=== PATIENT | male | born 1960 | race Caucasian/White ===

== ENCOUNTER 2024-11-27 21:04 | Inpatient (IN) | payer MEDICARE, MEDICAID, SELFPAY ==
[2024-11-27] VITALS (7 sets, daily range): BP systolic 88–115; BP diastolic 62–73; BMI 35.0
--- NOTE | 2024-11-27 18:04 | ED.GENMED ---
History of Present Illness
General
Chief Complaint: Cold/Flu/URI Symptoms
Source: patient
Exam Limitations: none
Time Seen by Provider: 11/27/24 17:54
History of Present Illness
History of Present Illness:
64-year-old male with history of developmental delay from halfway presents with cough. There are other members in the halfway with a cough. Patient limited historian but he denies pain.
Past History
Past History
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
ED Past Surgical History: Brain (Subdural hematoma with evacuation, 1960s)
Social History
Tobacco: Non-smoker
Alcohol: None
Drug: None
Personal: Single
Living: assisted living
Employment: Disabled
Family History
Family History: Hypertension
Phy Exam
Physical Exam
Physical Exam:
General: Well-appearing male no acute respiratory distress
HEENT: Normocephalic atraumatic
Heart: Tachycardic but regular
Lungs: Subtle Rales at the bases
Abdomen is soft nontender nondistended
Extremities: No cyanosis or edema
Skin is warm no rash
Course
Orders/Labs/Results
Orders:
Orders
11/27/24 18:01
CMP [Comprehensive Metabolic Panel] Urgent
COVID-19 Antigen Urgent
Source: Nasal Swab
Complete Blood Count/With Diff Urgent
Influenza A+B Rapid Molecular Urgent
BAILEY Source: Nasal Swab
Specimen Description:
11/27/24 18:02
CR Chest - 2 Views Urgent
Comment:
Reason For Exam: cough,
11/27/24 18:07
Lactic Acid Q4H
Comment: CANCEL 2nd LACTIC ACID IF 1st LACTIC ACID IS LESS THAN 2
Blood Culture Q30M
BAILEY Source: Blood/Venous
Specimen Description:
Blood Culture Q30M
BAILEY Source: Blood/Venous
Specimen Description:
11/27/24 18:09
0.9% Sodium Chloride 1000 ml [Nss] 1,000 ml IV BOLUS
Abnormal Lab Results
11/27/24
18:01
RBC 4.49 L 10^6/uL
(4.70-6.10)
MCHC 32.7 L g/dL
(33.0-37.0)
Absolute Lymphs (auto) 0.7 L 10^3/uL
(1.2-3.4)
Absolute Monos (auto) 0.8 H 10^3/uL
(0.1-0.6)
Lymphocytes % 11.4 L %
(20.5-51.1)
Monocytes % 13.3 H %
(1.7-9.3)
Sodium 134 L mmol/L
(135-145)
Chloride 97 L mmol/L
(98-107)
Glucose 108 H mg/dl
(70-99)
11/27/24 18:01
11/27/24 18:01
Vital Signs
Initial and Last Documented VS:
Initial Vital Signs
Temp Pulse Resp BP Pulse Ox
98.2 F 101 18 88/62 88
11/27/24 17:52 11/27/24 17:52 11/27/24 17:52 11/27/24 17:52 11/27/24 17:52
Last Documented Vital Signs
Temp Pulse Resp BP Pulse Ox
98.2 F 104 19 93/68 88
11/27/24 17:52 11/27/24 18:45 11/27/24 18:45 11/27/24 18:04 11/27/24 18:04
MDM/Problems Addressed
Differential Diagnosis Includes:
Cough. Upon triage vital signs show tachycardia hypotension and hypoxia. He is on 2 L of oxygen. Consider COVID flu versus pneumonia or bronchitis. Does not appear volume overloaded.
Fluids ordered lactic blood cultures pending. Chest x-ray pending. COVID and flu test pending
*Critical Care Note
Total Time (30-74mins, 75-104mins- exclusive of procedures): Not Applicable
Update Note
Update Note:
Chest x-ray clear tested positive for influenza COVID-negative. Patient still requiring nasal oxygen blood pressure improved slightly after IV fluids. Will admit to hospital for influenza.
ED Attending Note
-
Portions of this chart may have been created with voice recognition software.� Occasional wrong word or��sound alike� substitutions may have occurred due to the inherent limitations of voice recognition software.
Discharge Plan
Departure
Patient Disposition: Admit
Date of Disposition: 11/27/24
Time of Disposition: 19:40
Presentation/result/management discussed w/ accepting MD/DO: Hospitalist
Discharge Problem:
Influenza A
Prescriptions:
No Action
verapamil 180 MG tablet extended release
180 mg PO HS
docusate sodium 100 MG capsule
100 mg PO HSPRN PRN (Reason: CONSTIPATION)
acetaminophen 325 MG tablet
650 mg PO Q6HPRN PRN (Reason: PAIN/HEADACHE)
loperamide 2 MG capsule
2 mg PO Q4HPRN PRN (Reason: LOOSE STOOL)
olanzapine 5 MG tablet
5 mg PO HS
phenytoin sodium extended 100 MG capsule
400 mg PO DAILY
guaifenesin 100 MG/5 ML liquid
100 mg PO QIDPRN PRN (Reason: COUGH)
famotidine 20 MG tablet
20 mg PO BID
lisinopril 10 MG tablet
10 mg PO DAILY
loratadine-pseudoephedrine [Allergy Relief-D (loratadine)] 1 EACH tablet extended release 12 hr
1 tab PO DAILYPRN PRN (Reason: SINUS CONGESTION)
paroxetine HCl [Paxil] 40 MG tablet
40 mg PO DAILY
psyllium husk [Natural Fiber Laxative] 0.52 GM capsule
1 cap PO DAILY
chlorhexidine gluconate 15 ML mouthwash
5 ml PO BID
Patient Comments:
Rinse 5 mL for 1 minute then spit
Zinc Oxide 40% [Desitin Ointment:] 1 APPLIC Tube
1 applic topical BIDPRN PRN (Reason: BUTTOCK DERMATITIS)
Interventions
Interventions:
*Risk Screen - Suicide Last Done: 11/27/24 17:52
*General Assessment Last Done: 11/27/24 17:52
*Neglect/Abuse Screening Last Done: 11/27/24 17:52
ED- Fall Risk Assessment Last Done: 11/27/24 18:57
*ED COVID-19 Vaccine History Last Done: 11/27/24 17:52
ED- Pulmonary Assessment Last Done: 11/27/24 17:52
Discharge Date and Time
Print Language: AZERI
[2024-11-27 18:11] LABS: % Basophils 0.3 % (0-2); % Immature Granulocytes 0.5 % (0-0.5); % Lymphocytes 11.4 % (20.5-51.1); % Monocytes 13.3 % (1.7-9.3); % Neutrophils 74.5 % (42.2-75.2); Absolute Lymphocytes 0.7 10^3/uL (1.2-3.4); Absolute Monocytes 0.8 10^3/uL (0.1-0.6); Absolute Neutrophils 4.6 10^3/uL (1.4-6.5); Hematocrit 40.7 % (39.0-52.0); Hemoglobin 13.3 g/dL (13.0-18.0); Mean Corp Hgb Conc. 32.7 g/dL (33.0-37.0); Mean Corpuscular Hgb 29.6 pg (27.0-31.0); Mean Corpuscular Volume 90.6 fL (80.0-94.0); Mean Platelet Volume 10.2 fL (7.4-10.4); Nucleated Red Blood Cells % 0 % (-); Platelet Count 153 10^3/uL (130-400); Red Blood Cell Count 4.49 10^6/uL (4.70-6.10); Red Cell Dist. Width 13.2 % (11.5-14.5); White Blood Cell Count 6.2 10^3/uL (4.8-10.8)
[2024-11-27] MEDS: NSS 1000 IV (18:14)
[2024-11-27 18:27] LABS: Lactic Acid 0.8 mmol/L (0.7-2.0)
[2024-11-27 18:28] LABS: ALT (SGPT) 19 U/L (0-50); AST (SGOT) 35 U/L (17-59); Albumin 4.3 g/dl (3.5-5.0); Alkaline Phosphatase 64 U/L (38-126); Blood Urea Nitrogen 19 mg/dl (9-20); Calcium 9.7 mg/dl (8.4-10.2); Carbon Dioxide 26 mmol/L (22-30); Chloride 97 mmol/L (98-107); Glucose 108 mg/dl (70-99); Potassium 4.4 mmol/L (3.5-5.1); Sodium 134 mmol/L (135-145); Total Bilirubin 0.3 mg/dl (0.2-1.3); Total Protein 6.8 g/dl (6.3-8.2); eGFR > 60.00
[2024-11-27 18:47] LABS: COVID-19 Antigen Negative (Negative)
--- NOTE | 2024-11-27 19:48 | HPS.HSE ---
Family Physician
-
Family Physician:
Chief Complaint
-
Cough, Shortness of Breath and Fever
History of Present Illness
Patient is a 64 y/o male past medical history of subdural hematoma, essential hypertension, seizure disorder and intellectual disability who presents with cough, shortness of breath and fever. Patient is a limited historian. He is able to tell me
he does not feel well. He admits to cough and feeling a little shortness of breath. In the emergency department he tested positive for Influenza. Patient states that many people at the halfway are sick.
Medical History
Past Medical History
Past Medical History: Reports Other
Additional Past Medical History:
Subdural Hematoma
Essential Hypertension
Seizure Disorder
GERD
Mood Disorder / Anxiety / Depression
Moderate Intellectual Disability
Past Surgical History: Reports Other
Additional Past Surgical History:
Subdural Hematoma Evacuation
Feet Surgery
Cholecystectomy
Social History
Tobacco: Non-smoker
Living: Other (Care Home)
Family History
Family History: Not pertinent
Allergies / Home Medications
Allergies reflects when Allergies were last updated in [employer].
Home Medications with original date entered in [facility]
Allergy/Medication List:
Allergies
Allergy/AdvReac Type Severity Reaction Status Date / Time
grass pollen Allergy Unknown Verified 11/27/24 20:26
ragweed pollen Allergy Unknown Verified 11/27/24 20:26
tree and shrub pollen Allergy Unknown Verified 11/27/24 20:26
Home Medications
verapamil 180 mg tablet,extended release 180 mg PO HS 06/16/12
docusate sodium 100 mg capsule 100 mg PO BID 10/03/14
acetaminophen 325 mg tablet 650 mg PO Q6HPRN PRN mild pain/headache 05/22/15
chlorhexidine gluconate 0.12 % mouthwash 5 ml PO BID 05/22/15
famotidine 20 mg tablet 20 mg PO BID 05/22/15
guaifenesin 100 mg/5 mL oral liquid 100 mg PO QIDPRN PRN COUGH 05/22/15
loperamide 2 mg capsule 2 mg PO Q4HPRN PRN LOOSE STOOL 05/22/15
psyllium husk 0.52 gram capsule (Natural Fiber Laxative) 1 cap PO DAILY 05/22/15
alendronate 70 mg tablet 70 mg PO WE 11/27/24
calcium 500 mg (as carbonate)-vitamin D3 5 mcg (200 unit) tablet (Oyster Shell Calcium-Vitamin D3) 2 tab PO DAILY 11/27/24
lisinopril 5 mg tablet 5 mg PO DAILY 11/27/24
loratadine-pseudoephedrine ER 10 mg-240 mg tablet,extended [id number] (Claritin-D 24 Hour) 1 tab PO DAILYPRN PRN sinus congestion 11/27/24
olanzapine 7.5 mg tablet 7.5 mg PO HS 11/27/24
paroxetine HCl 20 mg tablet 20 mg PO HS 11/27/24
polyethylene glycol 3350 17 gram oral powder packet (Miralax) 17 g PO DAILYPRN PRN constipation 11/27/24
tamsulosin 0.4 mg capsule 0.4 mg PO DAILY 11/27/24
Review of Systems
-
Unable to obtain full review of systems at this time due to: Other (Mental Disability)
Respiratory: Reports Cough and Trouble Breathing
Cardiac: Denies Chest Pain or Palpitations
Physical Exam
Vital Signs
Vital Signs
Temp Pulse Resp BP Pulse Ox
98.2 F 104 19 93/68 88
11/27/24 17:52 11/27/24 18:45 11/27/24 18:45 11/27/24 18:04 11/27/24 18:04
Physical Exam
General: Comfortable, Conversant and Other (Intermittent cough)
HEENT: Anicteric and Moist mucous membranes
Respiratory: Other (Coarse breath sounds throughout)
Cardiac: S1/S2 and Regular Rhythm
GI: Soft and Non Tender
Rectal: Deferred by Provider
Musculoskeletal: No Clubbing, No Cyanosis and No Edema
Skin: Warm and Dry
Neuro: Awake, Alert, Oriented and Nonfocal/grossly intact
Psych: Calm
Laboratory Results
-
11/27/24 18:01
11/27/24 18:01
Laboratory Results
Lactic Acid Cancelled 11/27/24 22:15
Total Bilirubin 0.3 mg/dl (0.2-1.3) 11/27/24 18:01
AST 35 U/L (17-59) 11/27/24 18:01
ALT 19 U/L (0-50) 11/27/24 18:01
Alkaline Phosphatase 64 U/L (38-126) 11/27/24 18:01
Data Reviewed
-
Lab Data: Labs Reviewed by me
Impression/Plan
-
Acute Hypoxic Respiratory Insufficiency and Sepsis secondary to Influenza Type A
-Continue supplemental oxygen
-Continue Tamiflu
-Continue Mucinex
Essential Hypertension
-Hold lisinopril and verapamil due to low blood pressure
Mood Disorder / Anxiety / Depression
-Continue olanzapine and paroxetine
Developmental Delay
-Patient resides in a halfway
DVT proph: Lovenox
Code Status: Full Code
--- NOTE | 2024-11-27 20:55 | W.PN.UPDATE ---
Update Note
Progress Note Update
This is an addendum to the H&P written by Chloe Tavarez on 11/27/2024. Patient seen and examined independently with PA.
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
shortness of breath. Duration of symptoms unclear. He tested positive for flu today.
Patient initially arrived with blood pressure of 88/62.
Chest x-ray negative. Influenza positive.
Clinically septic due to tachycardia, fever. Check blood cultures, IV fluids. Tamiflu started. Hold antihypertensive medications.
[2024-11-27] MEDS: TAMIFLU 30 MG PO (22:06)
[2024-11-28] VITALS (14 sets, daily range): BP systolic 94–124; BP diastolic 63–80; O2SAT 92; BMI 30.9
[2024-11-28] MEDS: NSS 1000 IV ×3 (01:09→21:49)
[2024-11-28] MEDS: ZYPREXA 7.5 MG PO ×2 (01:12→21:50)
[2024-11-28] MEDS: PAXIL 20 MG PO ×2 (01:12→21:50)
[2024-11-28 05:47] LABS: Hematocrit 37.7 % (39.0-52.0); Hemoglobin 11.8 g/dL (13.0-18.0); Mean Corp Hgb Conc. 31.3 g/dL (33.0-37.0); Mean Corpuscular Hgb 29.2 pg (27.0-31.0); Mean Corpuscular Volume 93.3 fL (80.0-94.0); Mean Platelet Volume 10.6 fL (7.4-10.4); Platelet Count 134 10^3/uL (130-400); Red Blood Cell Count 4.04 10^6/uL (4.70-6.10); Red Cell Dist. Width 13.6 % (11.5-14.5); White Blood Cell Count 4.9 10^3/uL (4.8-10.8)
[2024-11-28 06:09] LABS: Blood Urea Nitrogen 20 mg/dl (9-20); Calcium 8.2 mg/dl (8.4-10.2); Carbon Dioxide 21 mmol/L (22-30); Chloride 105 mmol/L (98-107); Estimated Creatinine Clearance 69 ml/min; Glucose 89 mg/dl (70-99); Potassium 4.1 mmol/L (3.5-5.1); Sodium 137 mmol/L (135-145); eGFR > 60.00
[2024-11-28] MEDS: TAMIFLU 30 MG PO (08:56)
[2024-11-28] MEDS: COLACE 100 MG PO ×2 (08:56→21:50)
[2024-11-28] MEDS: FLOMAX 0.4 MG PO (08:56)
[2024-11-28] MEDS: PEPCID 20 MG PO ×2 (08:56→21:50)
[2024-11-28] MEDS: MUCINEX 600 MG PO ×2 (08:56→21:50)
--- NOTE | 2024-11-28 09:18 | W.PN.HOSP.TC ---
Today's Communication/Plan
-
see bold
Assessment / Plan
Assessment / Plan
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
shortness of breath. Duration of symptoms unclear. He tested positive for flu today. Patient initially arrived with blood pressure of 88/62.
Clinically septic due to tachycardia, fever. Check blood cultures, IV fluids. Tamiflu started. Hold antihypertensive medications.
Acute Hypoxic Respiratory Insufficiency and Sepsis secondary to Influenza Type A
-Currently requiring 4 L of oxygen, wean as tolerated
-Continue Tamiflu x 5 days
-Continue Mucinex, supportive care
Essential Hypertension
-Hold lisinopril and verapamil due to low blood pressure
Mood Disorder / Anxiety / Depression
-Continue olanzapine and paroxetine
Developmental Delay
-Patient resides in a [facility]
Obesity due to excess calories
� Affects all aspects of
DVT proph: Lovenox
Code Status: Full Code
Total time spent to see the patient on the floor, examine the patient, review data and lab results, discuss treatment plan with patient, nursing staff around 45 minutes.
Physical Exam
General: Obese, no acute distress
HEENT: Normocephalic, Atraumatic, EOMI, MMM
Respiratory: Coarse breath sounds diffusely
Cardiac: Normal S1/S2, Regular Rate and Rhythm
GI: Soft, Nontender, Nondistended, Normal Bowel Sounds
Extremities: No Clubbing, Cyanosis, or Edema
Neuro: Nonfocal/Grossly Intact
Psych: Calm, Cooperative
Derm: No Visible lesions
Anticipated Discharge: 24 - 48 hours
Subjective/Interval History
-
Date of Service: November 28, 2024
Patient reports his breathing is improved. Continues to have a dry cough. No fever, no vomiting.
Objective Data
-
Labs:
Laboratory Results
11/28/24
04:48
WBC 4.9
Hgb 11.8 L
Hct 37.7 L
Plt Count 134
Sodium 137
Potassium 4.1
Chloride 105
Carbon Dioxide 21 L
BUN 20
Creatinine 1.0
Glucose 89
Calcium 8.2 L D
Vital Signs:
Vital Signs
Temp Pulse Resp BP Pulse Ox
98.7 F 80 21 108/73 93
11/28/24 08:00 11/28/24 04:49 11/28/24 04:49 11/28/24 04:49 11/28/24 06:49
I&O
11/27/24 11/28/24 11/29/24
06:59 06:59 06:59
Intake Total 700 / 700
Output Total 300 / 300
Balance 400 / 400
[2024-11-28] MEDS: TESSALON PERLES 100 MG PO (12:08)
--- NOTE | 2024-11-28 13:53 | CM ---
CM spoke with nursing/Georgiana at [facility] [phone]
Pt ambulates with a WW and supervision
H erequires assistance with his ADLs
He is AxO 2 and forgetful, follows commands and is pleasant
Good skin integrity and no oxygen needs at baseline
PCP- Benjy Proctor
Rx- [place] blister packs
Brother/Miguel is POA
Pt able to return to [facility] at 1 person assist
If 2 person or more, will need SNF and thorough PASRR screen
Preferred provider is [facility] but if SN needs, then [facility]
Discharge Disposition- anticipate return to [facility] with VN, watch for higher needs
--- NOTE | 2024-11-28 16:00 | PTCARENOTE ---
Patient OOB with assist to bathroom. Patient became too weak and could not ambulate back from bathroom. RN placed patient in chair and wheeled him to bed. Patient was able to stand and get into bed. Call merchant in reach, helmet remains intact.
[2024-11-28] MEDS: LOVENOX 40 MG SC (16:32)
[2024-11-28] MEDS: TAMIFLU 75 MG PO (21:50)
[2024-11-29 03:04] VITALS: BP 122/70
[2024-11-29] MEDS: TESSALON PERLES 100 MG PO ×2 (06:10→21:30)
[2024-11-29] MEDS: NSS 1000 IV (06:10)
[2024-11-29 07:31] LABS: Hematocrit 35.2 % (39.0-52.0); Hemoglobin 11.3 g/dL (13.0-18.0); Mean Corp Hgb Conc. 32.1 g/dL (33.0-37.0); Mean Corpuscular Hgb 29.4 pg (27.0-31.0); Mean Corpuscular Volume 91.7 fL (80.0-94.0); Mean Platelet Volume 10.5 fL (7.4-10.4); Platelet Count 121 10^3/uL (130-400); Red Blood Cell Count 3.84 10^6/uL (4.70-6.10); Red Cell Dist. Width 13.4 % (11.5-14.5); White Blood Cell Count 4.4 10^3/uL (4.8-10.8)
[2024-11-29 07:35] VITALS: BP 121/73
[2024-11-29 07:41] LABS: Blood Urea Nitrogen 15 mg/dl (9-20); Carbon Dioxide 22 mmol/L (22-30); Chloride 107 mmol/L (98-107); Estimated Creatinine Clearance 85 ml/min; Glucose 89 mg/dl (70-99); Potassium 3.8 mmol/L (3.5-5.1); Sodium 137 mmol/L (135-145); eGFR > 60.00
[2024-11-29] MEDS: FLOMAX 0.4 MG PO (07:58)
[2024-11-29] MEDS: COLACE 100 MG PO ×2 (07:58→21:30)
[2024-11-29] MEDS: TAMIFLU 75 MG PO ×2 (07:58→21:29)
[2024-11-29] MEDS: MUCINEX 600 MG PO ×2 (07:58→21:29)
[2024-11-29] MEDS: PEPCID 20 MG PO ×2 (07:58→21:30)
--- NOTE | 2024-11-29 09:15 | PTCARENOTE ---
EKG obtained D/T monitor alarming vent. fib/tach. pt shows no s/s of distress. rate in 90'S. Baseline EKG obtained per attending.
--- NOTE | 2024-11-29 09:21 | W.PN.HOSP.TC ---
Today's Communication/Plan
-
Discharge tomorrow
Assessment / Plan
Assessment / Plan
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
shortness of breath. Duration of symptoms unclear. He tested positive for flu today. Patient initially arrived with blood pressure of 88/62.
Clinically septic due to tachycardia, fever. Check blood cultures, IV fluids. Tamiflu started. Hold antihypertensive medications.
Acute Hypoxic Respiratory Insufficiency
Influenza Type A
Sepsis ruled out (Only tachycardia documented, no fever documented, no leukocytosis)
-Currently requiring 2 L of oxygen, down from 4 L of oxygen, wean as tolerated. He does not wear oxygen at home
-Continue Tamiflu x 5 days
-Continue Mucinex, supportive care
Essential Hypertension
-Blood pressure increasing, resume lisinopril
-Hold verapamil
Mood Disorder / Anxiety / Depression
-Continue olanzapine and paroxetine
Developmental Delay
-[facility] a [facility]
Obesity due to excess calories
� Affects all aspects of
DVT proph: Lovenox
Code Status: Full Code
Total time spent to see the patient on the floor, examine the patient, review data and lab results, discuss treatment plan with patient, nursing staff around 40 minutes.
Physical Exam
General: Obese, no acute distress
HEENT: Normocephalic, Atraumatic, EOMI, MMM
Respiratory: Coarse breath sounds diffusely
Cardiac: Normal S1/S2, Regular Rate and Rhythm
GI: Soft, Nontender, Nondistended, Normal Bowel Sounds
Extremities: No Clubbing, Cyanosis, or Edema
Neuro: Nonfocal/Grossly Intact
Psych: Calm, Cooperative
Derm: No Visible lesions
Anticipated Discharge: Within 24 hours
Subjective/Interval History
-
Date of Service: November 29, 2024
Patient is somnolent this morning. He did not sleep well last night. His breathing continues to improve. No fever, no vomiting.
Objective Data
-
Labs:
Laboratory Results
11/29/24
06:25
WBC 4.4 L
Hgb 11.3 L
Hct 35.2 L
Plt Count 121 L
Sodium 137
Potassium 3.8
Chloride 107
Carbon Dioxide 22
BUN 15
Creatinine 0.8
Glucose 89
Calcium 8.0 L
Vital Signs:
Vital Signs
Temp Pulse Resp BP Pulse Ox
97.9 F 79 18 122/70 97
11/29/24 03:04 11/29/24 05:02 11/29/24 05:02 11/29/24 03:04 11/29/24 05:02
I&O
11/28/24 11/29/24 11/30/24
06:59 06:59 06:59
Intake Total 700 / 700 480 / 480
Output Total 300 / 300 200 / 200
Balance 400 / 400 280 / 280
[2024-11-29 11:19] VITALS: BP 101/63
--- NOTE | 2024-11-29 13:51 | PN.CDI ---
Addendum entered and electronically signed by Radu Garnett MD 11/29/24 14:15:
Not my patient
Original Note:
CDI
- -
CDI:
Physician Documentation Request
Admit Date: 11/27/24 21:04
Dear Doctor Tamir,
Please review the following and provide your response in the progress notes.
Clinical Indicators:
Documentation in the record on _11/28 PN_ includes the diagnosis of sepsis. The following clinical information was noted in the record:
- 11/28 PN 'Acute Hypoxic Respiratory Insufficiency and Sepsis secondary to Influenza Type A'
- 'Clinically septic due to tachycardia, fever'
- Documented Tmax 98.4
- 11/27 ER Physician 'from care home presents with cough'
Based on the above information and the recognized standard SIRS criteria, please clarify if sepsis is still an accurate diagnosis, and reflective of the patient�s condition, to ensure quality of the medical record.
Please clarify in the Progress Notes:
Sepsis is/was present and is a clinical diagnosis based on (please include this additional support in the medical record)
After study sepsis has been ruled out
Other (please specify)
Recognized standard criteria for this condition and other associated definitions:
�Bacteremia
-Abnormal laboratory test does not indicate a clinically ill patient
�Sepsis
-Systemic manifestations of infection, with 2 or more SIRS criteria which include:
-Fever > 100.4��F or hypothermia < 96.8��F
-Leukocytosis WBC > 12,000 or leukopenia, WBC < 4,000, or > 10% bands
-Tachycardia- > 90 beats/minute
-Tachypnea- RR > 20 breaths/minute or PaCO2 < 32mmHg
Source: Merck Manual 2013
-Documentation should include the known or suspected organism, and the underlying infection, such as UTI or pneumonia
�Severe Sepsis
-Sepsis with associated acute organ dysfunction, such as renal or respiratory failure
-Documentation should indicate the association between the sepsis and the organ dysfunction
�Septic Shock
-Severe sepsis with associated with circulatory failure, evidenced by hypotension and hypoperfusion
Use of terms such as suspected, likely, concern for, or probable (associated with a specific diagnosis that is being evaluated, monitored, or treated as if it exists) are acceptable and can be coded in the inpatient setting, when documented at the
time of discharge.
Thank you,
Neil Mcgregor RN
CDI Specialist
Please use your independent medical judgment in providing your response.
--- NOTE | 2024-11-29 14:35 | PN.CDI ---
CDI
- -
CDI:
Physician Documentation Request
Admit Date: 11/27/24 21:04
Dear Doctor Do,
Please review the following and provide your response in the progress notes.
Clinical Indicators:
Documentation in the record on _11/28 PN_ includes the diagnosis of sepsis. The following clinical information was noted in the record:
- 11/28 PN 'Acute Hypoxic Respiratory Insufficiency and Sepsis secondary to Influenza Type A'
- 'Clinically septic due to tachycardia, fever'
- Documented Tmax 98.4
- 11/27 ER Physician 'from [facility] presents with cough'
Based on the above information and the recognized standard SIRS criteria, please clarify if sepsis is still an accurate diagnosis, and reflective of the patient�s condition, to ensure quality of the medical record.
Please clarify in the Progress Notes:
Sepsis is/was present and is a clinical diagnosis based on (please include this additional support in the medical record)
After study sepsis has been ruled out
Other (please specify)
Recognized standard criteria for this condition and other associated definitions:
�Bacteremia
-Abnormal laboratory test does not indicate a clinically ill patient
�Sepsis
-Systemic manifestations of infection, with 2 or more SIRS criteria which include:
-Fever > 100.4��F or hypothermia < 96.8��F
-Leukocytosis WBC > 12,000 or leukopenia, WBC < 4,000, or > 10% bands
-Tachycardia- > 90 beats/minute
-Tachypnea- RR > 20 breaths/minute or PaCO2 < 32mmHg
Source: Merck Manual 2013
-Documentation should include the known or suspected organism, and the underlying infection, such as UTI or pneumonia
�Severe Sepsis
-Sepsis with associated acute organ dysfunction, such as renal or respiratory failure
-Documentation should indicate the association between the sepsis and the organ dysfunction
�Septic Shock
-Severe sepsis with associated with circulatory failure, evidenced by hypotension and hypoperfusion
Use of terms such as suspected, likely, concern for, or probable (associated with a specific diagnosis that is being evaluated, monitored, or treated as if it exists) are acceptable and can be coded in the inpatient setting, when documented at the
time of discharge.
Thank you,
Neil Mcgregor RN
CDI Specialist
Please use your independent medical judgment in providing your response.
[2024-11-29 15:13] VITALS: BP 160/84
--- NOTE | 2024-11-29 15:56 | PTCARENOTE ---
condom catheter applied, draining clear yellow urine. hourly rounds continue. CB in reach
[2024-11-29] MEDS: LOVENOX 40 MG SC (17:06)
--- NOTE | 2024-11-29 17:32 | PTCARENOTE ---
pt weaned to 1L 02 via nasal canula. 95%
[2024-11-29 19:24] VITALS: BP 152/90
[2024-11-29] MEDS: ZYPREXA 7.5 MG PO (21:30)
[2024-11-29] MEDS: PAXIL 20 MG PO (21:30)
[2024-11-29 23:13] VITALS: BP 109/68
[2024-11-30 03:04] VITALS: BP 129/78
[2024-11-30] MEDS: COLACE 100 MG PO (08:21)
[2024-11-30] MEDS: PEPCID 20 MG PO (08:21)
[2024-11-30] MEDS: MUCINEX 600 MG PO (08:21)
[2024-11-30] MEDS: TAMIFLU 75 MG PO (08:21)
[2024-11-30] MEDS: FLOMAX 0.4 MG PO (08:21)
[2024-11-30 08:36] VITALS: BP 134/69
--- NOTE | 2024-11-30 08:38 | W.PN.HOSP.TC ---
Today's Communication/Plan
-
Stable for discharge on Tamiflu
Assessment / Plan
Assessment / Plan
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
shortness of breath. Duration of symptoms unclear. He tested positive for flu today. Patient initially arrived with blood pressure of 88/62.
Clinically septic due to tachycardia, fever. Check blood cultures, IV fluids. Tamiflu started. Hold antihypertensive medications.
Acute Hypoxic Respiratory Insufficiency
Influenza Type A
Sepsis ruled out (Only tachycardia documented, no fever documented, no leukocytosis)
-Currently on RA, was on 2 L of oxygen, down from 4 L of oxygen, wean as tolerated. He does not wear oxygen at home
-Medically stable for discharge on Tamiflu to complete a 5-day course. Follow-up with PCP in 1 week
-Continue Mucinex, supportive care
Essential Hypertension
-Blood pressure increasing, resumed lisinopril
-Hold verapamil for 1 week post-discharge
Mood Disorder / Anxiety / Depression
-Continue olanzapine and paroxetine
Developmental Delay
-Patient resides in a longterm
Obesity due to excess calories
� Affects all aspects of
DVT proph: Lovenox
Code Status: Full Code
Physical Exam
General: Obese, no acute distress
HEENT: Normocephalic, Atraumatic, EOMI, MMM
Respiratory: Coarse breath sounds diffusely
Cardiac: Normal S1/S2, Regular Rate and Rhythm
GI: Soft, Nontender, Nondistended, Normal Bowel Sounds
Extremities: No Clubbing, Cyanosis, or Edema
Neuro: Intellectual disability noted
Psych: Calm, Cooperative
Anticipated Discharge: Today
Subjective/Interval History
-
Date of Service: November 30, 2024
Hypoxia resolved. No fever, no vomiting.
Objective Data
-
Vital Signs:
Vital Signs
Temp Pulse Resp BP Pulse Ox
98.2 F 59 18 134/69 97
11/30/24 08:36 11/30/24 08:36 11/30/24 08:36 11/30/24 08:36 11/30/24 08:36
I&O
11/29/24 11/30/24 12/01/24
06:59 06:59 06:59
Intake Total 480 / 480 480 / 480
Output Total 200 / 200 700 / 700
Balance 280 / 280 -220 / -220
[2024-11-30 11:26] VITALS: BP 139/86
--- NOTE | 2024-11-30 11:27 | CM ---
Addendum entered by Eun Bonner 11/30/24 12:32:
CM following for discharge back to [facility].
Discussed with RN who advised pt will need to have a home O2 assessment prior to determining readiness for discharge.
Referral made to [facility] per PT/OT recommendation. Per [facility], [facility] is agency of choice and [facility] is know to them.
The pharmacy used by the [facility] typically delivers Rx, however they cannot do so today. If the pt is being discharged with new prescriptions, they will need to be sent electronically to [facility]. This pharmacy was entered into the
medical record.
Nursing Report can be called to [phone].
Original Note:
Pt cleared for discharge to return to [facility] today. CM contacted [facility] [phone] to discuss discharge; pt cannot return with O2 needs. Dr. Leong notified of same via TT. CM will follow up with RN on unit.
--- NOTE | 2024-11-30 12:52 | VNURNOTE ---
Home Health Liaison spoke with Silvina at [facility] to discuss [facility] nurse/therapy, visits, schedule and homebound status. She is familiar with [facility] services and is agreeable and understands that visits at home will be 2-3 x per week to
assess and teach medical management. Patient has had [facility] in the past. Silvina is aware that [facility] will contact them for start of care in 1-2 days after discharge from . Per Silvina, she is waiting for report from nurse. [facility] liaison also
spoke with patient who is agreeable to services. Watching for home 02 eval results.
[facility] referral completed in [facility].
--- NOTE | 2024-11-30 15:02 | CM ---
Addendum entered by Eun Bonner 11/30/24 15:19:
Ramakrishna is unable to sign IMM. TAVIA verbally reviewed IMM with BEENA Schrader at [facility]; street address for facility is [address] [place] [address], [place] [address]

Original Note:
Multiple calls between BEENA SQUIRES and BEENA Schrader at the [facility] to coordinate pt's return.
Ambulance transport requested.
Time of transport pending.
--- NOTE | 2024-11-30 15:45 | W.DCSUMMARY ---
Discharge Summary
Discharge Data
Date of Admission: 11/27/24
Date of Discharge: 11/30/24
-
Pending Results: No
Hospital Course
Discharge diagnosis:
Acute hypoxic respiratory insufficiency
Acute influenza infection
Transient hypotension
Essential hypertension
Mood disorder/anxiety/depression
Developmental delay
Obesity due to excess calories
Chest x-ray:
Low lung volumes.
Hospital course:
64-year-old male with a past medical history of developmental delay, mood disorder, hypertension, and obesity was admitted for acute hypoxic respiratory insufficiency secondary to acute influenza reaction. Patient resides at a shelter, and there
is an influenza outbreak. He reports coughing. He initially required 4 L of oxygen. He was treated with Tamiflu and supportive care. He was successfully weaned to room air.
Patient's blood pressure was soft in the hospital. His lisinopril and verapamil were held. His blood pressure normalized, and started increasing. His lisinopril was resumed. Recommend that he hold his verapamil for 1 more week.
Patient is medically stable for discharge on Tamiflu to complete a 5-day course. He needs to follow-up with his primary care doctor in 1 week.
Disposition: Home, at the shelter
Discharge planning: Required 39 minutes
Discharge Plan
-
Patient Disposition: Home with Home Care
Discharge Diagnosis/Procedures: Acute influenza A infection, acute hypoxia
Condition: Good
Diet: Regular
Activity: As tolerated
Activity Restrictions/Additional Instructions:
Please rest, drink plenty of fluids.
Follow-up with your primary care doctor in 1 week.
Referrals:
Benjy Proctor MD [Family Provider] - in one week
Prescriptions:
New
oseltamivir 75 mg Capsule
75 mg PO BID Qty: 5 0RF
guaifenesin 600 mg Tablet Extended Release 12hr
600 mg PO Q12 10 Days Qty: 20 0RF
Continued
docusate sodium 100 MG capsule
100 mg PO BID
acetaminophen 325 MG tablet
650 mg PO Q6HPRN PRN (Reason: mild pain/headache)
loperamide 2 MG capsule
2 mg PO Q4HPRN PRN (Reason: LOOSE STOOL)
guaifenesin 100 MG/5 ML liquid
100 mg PO QIDPRN PRN (Reason: COUGH)
famotidine 20 MG tablet
20 mg PO BID
psyllium husk [Natural Fiber Laxative] 0.52 GM capsule
1 cap PO DAILY
chlorhexidine gluconate 15 ML mouthwash
5 ml PO BID
Patient Comments:
Rinse 5 mL for 1 minute then spit
polyethylene glycol 3350 [Miralax] 17 gram Powder In Packet
17 g PO DAILYPRN PRN (Reason: constipation)
alendronate 70 mg Tablet
70 mg PO WE
olanzapine 7.5 mg Tablet
7.5 mg PO HS
Claritin-D 24 Hour 10-240 mg Tablet Extended Release 24 Hr
1 tab PO DAILYPRN PRN (Reason: sinus congestion)
tamsulosin 0.4 mg Capsule
0.4 mg PO DAILY
paroxetine HCl 20 mg Tablet
20 mg PO HS
lisinopril 5 mg Tablet
5 mg PO DAILY
calcium carbonate-vitamin D3 [Oyster Shell Calcium-Vit D3] 500 mg-5 mcg (200 unit) Tablet
2 tab PO DAILY
Held
verapamil 180 MG tablet extended release
180 mg PO HS
Hold Instructions: Resume on 12/06/24.
Discharge Orders:
Discharge Patient (As Directed); Ordered 11/30/24
Ordered By: Pablito Leong
Discharge Date and Time
Discharge Date/Time: 11/30/24 20:55
Print Language: ANDORRAN
[2024-11-30 15:47] VITALS: BP 145/83
[2024-11-30 20:30] VITALS: BP 152/85
== END 2024-11-30 20:55 | disposition home health service (06) | DRG 195 ==
LOC: 4 EAST ACU 21:04
PROVIDERS: Physician Assistant; Physician Assistant Medical; ADMITTING PHYSICIAN Hospitalist; ATTENDING PHYSICIAN Family Medicine; EMERGENCY PHYSICIAN Student in an Organized Health Care Education/Training Program; FAMILY PHYSICIAN Internal Medicine
DX: J10.1 Influenza due to other identified influenza virus with other respiratory manifestations (principal); R06.89 Other abnormalities of breathing; R09.02 Hypoxemia; F32.A Depression, unspecified; F41.9 Anxiety disorder, unspecified; F71 Moderate intellectual disabilities; G40.909 Epilepsy, unspecified, not intractable, without status epilepticus; I10 Essential (primary) hypertension; K21.9 Gastro-esophageal reflux disease without esophagitis; F39 Unspecified mood [affective] disorder; E66.09 Other obesity due to excess calories; Z68.35 Body mass index [BMI] 35.0-35.9, adult; Z86.61 Personal history of infections of the central nervous system; Z86.79 Personal history of other diseases of the circulatory system; Z79.899 Other long term (current) drug therapy; Z20.822 Contact with and (suspected) exposure to COVID-19
CPT/HCPCS: 71046; 80048; 80053; 83605; 85025; 85027; 87040; 87070; 87502; 87811; 93005; 96360; 97163; 99285

== ENCOUNTER → 2025-04-23 13:30 | Outpatient (REF) | payer MEDICARE, MEDICAID, SELFPAY | LOC: HWRAD 13:30 | PROVIDERS: ATTENDING PHYSICIAN Nurse Practitioner | DX: M81.0 Age-related osteoporosis without current pathological fracture (principal) | CPT/HCPCS: 77080 ==

== ENCOUNTER → 2025-05-07 13:19 | Outpatient (REF) | payer MEDICARE, MEDICAID, SELFPAY | LOC: RAD 13:19 | PROVIDERS: ATTENDING PHYSICIAN Nurse Practitioner | DX: M79.671 Pain in right foot (principal) | CPT/HCPCS: 73630 ==